=== PATIENT | female | born 1975 | race African-American/Black ===

== ENCOUNTER 2025-01-09 15:27 | Emergency (ER) | payer OTHER ==
[~2025-01-09] VITALS: Ht 172.7 cm; Wt 82.0 kg
[2025-01-09 15:31] VITALS: O2SAT 98
[2025-01-09] MEDS: METHOCARBAMOL 500MG TABLET PO ONE (17:56)
[2025-01-09] MEDS: ACETAMINOPHEN 500MG TABLET PO ONE (17:58)
[2025-01-09] MEDS ORDERED: METH-653 MT (18:44)
[2025-01-09] MEDS ORDERED: IBUP-2029 MT (18:44)
[2025-01-09 18:53] VITALS: BP 141/88; PULSE 69; RESP 16; TEMP 36.7; O2SAT 98
== END 2025-01-09 18:53 | disposition home or self-care (01) ==
LOC: ER 15:27
DX: S33.5XXA Sprain of ligaments of lumbar spine, initial encounter (principal); S63.591A Other specified sprain of right wrist, initial encounter; V43.62XA Car passenger injured in collision with other type car in traffic accident, initial encounter; Y93.89 Activity, other specified; Y92.410 Unspecified street and highway as the place of occurrence of the external cause; Y99.8 Other external cause status
CPT/HCPCS: 71045; 73110; 99284